=== PATIENT | male | born 1950 | race Caucasian/White ===

== ENCOUNTER → 2018-10-03 11:34 | Outpatient (CLI) | payer MEDICARE ==
[~2018-10-03 11:34] MED LIST: FLUTICASONE PRO16 GM NASAL; HYDROCODON-ACE1 EAC7 PO; HYTRIN10 MG PO; LIPITOR40 MG PO; LYRICA200 MG PO; LYRICA25 MG PO; NORVASC10 MG PO; TOPROL XL50 MG PO; VALIUM 2 MG TAB2 MG PO; ZANAFLEX4 MG; ZESTRIL40 MG PO
[2018-10-09 12:35] VITALS: BMI 43.6
== END | disposition home or self-care (01) ==
LOC: D.HCCARDIO 11:30
DX: R07.9 Chest pain, unspecified (principal); I25.10 Atherosclerotic heart disease of native coronary artery without angina pectoris; R06.00 Dyspnea, unspecified

== ENCOUNTER 2018-10-09 11:51 | Outpatient (CLI) | payer MEDICARE ==
[~2018-10-09] VITALS: Ht 185.4 cm; Wt 150.0 kg
--- NOTE | ~2018-10-09 | HEMODYNAMI ---
PATIENT:EMELY AL MEDICAL RECORD: [id number] : 50 LOCATION:D.CAT ADMISSION DATE: 10/09/18 Generatedon:10/09/201816:23 Patient name: EMELY AL Patient #: [id number] SSN: : 1950 Date of study: 10/09/2018 Page: Of Hemodynamic Procedure Report Patient Data Patient Demographics Procedure consent was obtained First Name: EMELY Gender: Male Last Name: MIKAELA : 1950 Patient #: [id number] Age: 68 year(s) Race: Unknown Additional ID: [id number] Contact details Address: [place] [address] State: [place] City: [place] Zip code: [address] Past Medical History Allergies Allergen Reaction Date Comments Reported Other allergy 10/09/2018 PCN, MOLD Admission Admission Data Admission Date: 10/09/2018 Admission Time: 11:51 Admit Source: Other Procedure Procedure Types Cath Procedure Diagnostic Procedure LHC LHC w/Coronaries Procedure Description Procedure Date Procedure Date: 10/09/2018 Procedure Start Time: 16:08 Procedure End Time: 16:19 Procedure Staff Name Function Otf Sanchez MD Performing Physician Nadia Tijerina RT Monitor Janice Mcgregor RN Nurse Johnny Almonte RT Scrub Procedure Data Cath Procedure Fluoroscopy Diagnostic fluoroscopy Total fluoroscopy Time: 1.7 time: 1.7 min min Diagnostic fluoroscopy Total fluoroscopy dose: dose: 1079 mGy 1079 mGy Contrast Material Contrast Material Type Amount (ml) Isovue 300 71 Entry Location Entry Primary Successful Side Size Upsize Upsize Entry Closure Gifford ccessful Closure Location (Fr) 1 (Fr) 2 (Fr) Remarks Device Remarks Radial Right 6 Fr Mechanical artery Short Compression Estimated blood loss: 5 ml Diagnostic catheters Device Type Used For End Catheter Placement DIAGNOSTIC Myels 110cm 5Fr catheter ([id number]) Procedure Complications No complications Procedure Medications Medication Administration Route Dosage Oxygen etCO2 Nasal cannula 2 l/min Lidocaine 2% added to field 20 Heparin Flush Bag added to field 2 bags (1000units/500ml NS) 0.9% NaCl I.V. 100 ml/hr Radial Cocktail I.A. 1 syringe (Verapomil 2mg/Nitro 400mcg/Heparin 1500units) Versed I.V. 1 mg Fentanyl I.V. 50 mcg Versed I.V. 1 mg Fentanyl I.V. 50 mcg Versed I.V. 0.5 mg Fentanyl I.V. 25 mcg Hemodynamics Rest Heart Rate: 76 (bpm) Pressure Samples Time Site Value (mmHg) Purpose Heart Use Rate(bpm) 16:10 LV 83/13,12 Snapshot 65 16:10 LV 141/16,23 Snapshot 66 16:11 AO 123/72(94) Pullback 61 16:11 LV 129/3,12 Pullback 61 Gradients Valve Time Site 1 Site 2 Mean SEP/DFP Peak To Heart Use (mmHg) (sec/min) Peak Rate (mmHg) (bpm) Aortic 16:11 LV AO 11 6 6 61 129/3,12 123/72(94) Calculations Valve P-P Mean Valve Index Valve Source Name Gradient Area Flow (cm2) Aortic 6 11 6 11 Snapshots Pre Cath Intra NCS Post Cath Vital Signs Time Heart Resp SPO2 etCO2 NIBP (mmHg) Rhythm Pain Sedation Rate (ipm) (%) (mmHg) Status Level (bpm) 15:57:18 53 14 98 0 158/89(129) NSR 0 (11) 10(A) , No pain 16:02:09 51 14 98 28.6 163/95(128) NSR 0 (11) 10(A) , No pain 16:06:23 60 13 99 35.4 147/127(135) NSR 0 (11) 10(A) , No pain 16:10:33 67 14 97 0 160/91(130) NSR 0 (11) 9(A) , No pain 16:14:47 62 12 96 19.6 158/92(116) NSR 0 (11) 9(A) , No pain 16:19:01 56 15 98 7.5 160/85(117) NSR 0 (11) 10(A) , No pain Medications Time Medication Route Dose Verified Delivered Reason Notes Effectiveness by by 16:01:57 Oxygen etCO2 2 l/min Otf Janice used for Nasal Daniel Mcgregor diagnostics tech cannula 16:02:07 Lidocaine 2% added 20ml Otf Otf for local to vial Daniel Sanchez MD anesthetic field 16:02:13 Heparin Flush added 2 bags Otf Otf used for Bag to Daniel Sanchez MD procedure (1000units/500ml field NS) 16:02:22 0.9% NaCl I.V. 100 Otf Buffie Per ml/hr Daniel Mcgregor RN physician 16:04:11 Versed I.V. 1 mg Otf Buffie for sedation Daniel Mcgregor RN 16:04:15 Fentanyl I.V. 50 mcg Otf Buffie for sedation Daniel Mcgregor RN 16:09:52 Radial Cocktail I.A. 1 Otf Otf for (Verapomil syringe Daniel Sanchez MD vasodilation 2mg/Nitro 400mcg/Heparin 1500units) 16:10:01 Versed I.V. 1 mg Otf Buffie for sedation Daniel Mcgregor RN 16:10:06 Fentanyl I.V. 50 mcg Otf Buffie for sedation Daniel Mcgregor RN 16:14:19 Versed I.V. 0.5 mg Otf Buffie for sedation Daniel Mcgregor RN 16:14:23 Fentanyl I.V. 25 mcg Otf Buffie for sedation Daniel Mcgregor RN Procedure Log Time Note 15:47:02 Admit Source: Other 15:47:25 Diagnostic Cath status Elective 15:47:31 Janice Mcgregor RN sent for patient. Start room use. 15:47:52 Time tracking: Regular hours (M-F 7:00 - 5:00) 15:47:56 Plan of Care:Hemodynamics will remain stable., Cardiac rhythm will remain stable., Comfort level will be maintained., Respiratory function will remain adequate., Patient/ family verbilizes understanding of procedure., Procedure tolerated without complication., Recovers from procedure without complications.. 15:55:55 Patient received from Pre/Post Procedure Room to CCL 1 Alert and oriented. Tansferred to table in Supine position. 15:55:57 Warm blankets applied, and vick hugger turned on for patient comfort. 15:55:57 Correct patient and procedure confirmed by team. 15:55:58 Signed procedure consent form obtained from patient. 15:56:00 ECG and BP/O2 sat monitors applied to patient. 15:56:01 Vital chart was started 15:56:02 Baseline sample Acquired. 15:56:05 Rhythm: sinus rhythm 15:56:06 Full Disclosure recording started 15:56:56 Baseline sample Acquired. 15:56:59 Baseline sample Acquired. 16:01:57 Oxygen 2 l/min etCO2 Nasal cannula was administered by Janice Mcgregor RN; used for procedure; 16:02:07 Lidocaine 2% 20ml vial added to field was administered by Otf Sanchez MD; for local anesthetic; 16:02:13 Heparin Flush Bag (1000units/500ml NS) 2 bags added to field was administered by Otf Sanchez MD; used for procedure; 16:02:18 Baseline sample Acquired. 16:02:22 0.9% NaCl 100 ml/hr I.V. was administered by Janice Mcgregor RN; Per physician; 16:02:35 H&P Date Dictated: 09/27/2018 Within 30 days and on chart., H&P Addendum completed by physician on day of procedure. (MUST COMPLETE FOR ALL OUTPATIENTS). 16:02:37 Family in patients room. 16:02:39 Patient NPO since Midnight. 16:02:48 Patient allergic to Other allergyPCN, MOLD 16:02:51 Patient diabetic? No. 16:02:53 Is patient on blood thinner?No 16:02:55 Previous problem with sedation/anesthesia? No ? 16:02:57 Snore? Yes 16:02:58 Sleep apnea? No 16:02:59 Deviated septum? No 16:03:00 Opens mouth fully? Yes 16:03:01 Sticks out tongue? Yes 16:03:03 Airway obstruction? No ? 16:03:06 Dentures? Yes IN TIGHT 16:03:10 Modified Dm's test Ulnar < 7 seconds 16:03:12 Patient pain scale 0/10 ?. 16:03:16 IV patent on arrival in left hand with 0.9% NaCl at [facility]. 16:03:19 Lab results completed and on chart. 16:03:23 Right Radial & Right Groin area was prepped with chlora-prep and draped in sterile fashion 16:03:23 Alarms reviewed by R. N. 16:03:24 Sharps counted by scrub and verified by R.N. 16:03:26 Use device set Radial Dx or PCI 16:03:27 ACIST Syringe ([id number]) opened to sterile field. 16:03:28 Bag Decanter (2001S) opened to sterile field. 16:03:29 ACIST Hand Control (15546) opened to sterile field. 16:03:29 ACIST Manifold (70877) opened to sterile field. 16:03:30 Tegaderm 4 x 4 (1626W) opened to sterile field. 16:03:32 Medline Cath Pack ([id number]) opened to sterile field. 16:03:32 DIAGNOSTIC WIRE .035 260cm J wire (636566) opened to sterile field. 16:03:32 MBrace Wrist Support ([id number]) opened to sterile field. 16:03:33 SHEATH 6FR Slender (99-5742) opened to sterile field. 16:03:35 NEEDLE Cook 21G 4cm Radial ([id number]) opened to sterile field. 16:03:40 --------ALL STOP TIME OUT------ 16:03:40 Final Timeout: patient, procedure, and site verified with staff and physician. All members of the team are in agreement. 16:03:42 Right Radial & Right Groin site verified by team. 16:03:44 Physical assessment completed. ASA score P 2 - A patient with mild systemic disease as per Otf Sanchez MD. 16:03:48 Sedation plan: IV Moderate Sedation Medication:Versed, Fentanyl 16:04:11 Versed 1 mg I.V. was administered by Janice Mcgregor RN; for sedation; 16:04:15 Fentanyl 50 mcg I.V. was administered by Janice Mcgregor RN; for sedation; 16:07:48 Zero performed for pressure channel P1 16:07:51 Procedure started. 16:08:24 Zero performed for pressure channel P1 16:08:37 Zero performed for pressure channel P1 16:08:46 Local anesthetic to right radial artery with Lidocaine 2% by Otf Sanchez MD.INITIAL ACCESS ONLY 16:09:17 A 6 Fr Short sheath was inserted into the Right Radial artery 16:09:31 A DIAGNOSTIC Myles 110cm 5Fr catheter ([id number]) was advanced over the wire and used for . 16:09:52 Radial Cocktail (Verapomil 2mg/Nitro 400mcg/Heparin 1500units) 1 syringe I.A. was administered by Otf Sanchez MD; for vasodilation; 16:10:01 Versed 1 mg I.V. was administered by Janice Mcgregor RN; for sedation; 16:10:06 Fentanyl 50 mcg I.V. was administered by Janice Mcgregor RN; for sedation; 16:10:07 LV gram done using VENTURA 16:10:11 Injector settings: Ml/sec: 5, Volume: 15, 16:10:50 LV hemodynamics recorded. 16:10:59 EF : 50 % 16:13:32 LCA angiography performed. 16:14:13 RCA angiography performed. 16:14:19 Versed 0.5 mg I.V. was administered by Janice Mcgregor RN; for sedation; 16:14:23 Fentanyl 25 mcg I.V. was administered by Janice Mcgregor RN; for sedation; 16:16:30 Catheter exchanged over wire. 16:16:36 TR BAND Large ([id number]) opened to sterile field. 16:16:59 Procedure ended.(Physican Out) 16:17:13 Sheath removed intact; hemostasis achieved with Mechanical Compression to the Right Radial artery. 16:17:33 Fluoroscopy time 01.70 minutes. 16:17:38 Fluoroscopy dose: 1079 mGy 16:17:38 Flurop Dose total: 1079 16:17:42 Contrast amount:Isovue 300 71ml. 16:17:43 Sharps counted by scrub and verified by R.N. 16:17:46 TR band inflated with 11cc of air. 16:17:59 Post-procedure physical assessment completed. ASA score P 2 - A patient with mild systemic disease as per Otf Sanchez MD. 16:18:05 Post procedure rhythm: sinus bradycardia 16:18:08 Estimated blood loss: 5 ml 16:18:09 Post procedure instruction explained to patient.Patient verbalizes understanding. 16:18:10 Patient needs reinforcement of post procedure teaching. 16:19:34 Procedure and supply charges have been captured, reviewed, submitted and are correct. 16:19:37 Procedure Complication : No complications 16:19:38 Vital chart was stopped 16:19:39 See physician's report for complete and final results. 16:19:41 Report given to Pre/Post Procedure Room. 16:19:47 Patient transfered to Pre/Post Procedure Room with Bed. 16:19:49 Procedure ended. 16:19:49 Full Disclosure recording stopped 16:19:53 End room use (Document Last) Device Usage Item Name Manufacture Quantity Catalog Hospital Part Current Minimal Lot# / Number Charge Number Stock Stock Serial# Code ACIST Acist 1 29292 150988 114707 966914 20 Syringe Medical (15657) Systems Inc Bag Microtek 1 2001S 807250 01097 866653 5 Decanter Medical Inc. () ACIST Hand Acist 1 58645 070596 627305 502421 5 Control Medical (62499) Systems Inc ACIST Acist 1 79319 211906 080229 021105 5 Manifold Medical (99448) Systems Inc Tegaderm 4 3M 1 1626W 478089 084191 091796 5 x 4 (1626W) Medline Medline 1 [id number] 817644 71733 599517 5 Cath Pack ([id number]) DIAGNOSTIC St Jabari 1 857214 997100 845370 007360 30 WIRE .035 260cm J wire (326761) MBrace Advanced 1 140-0250-00 651729 89993 501877 5 Wrist Vascular Support Dynamics ([id number]) SHEATH 6FR Terumo 1 [id number] 087872 656404 626513 5 Slender (80-1060) NEEDLE Cook Cook Medical 1 P70383 733156 383693 105635 5 21G 4cm Radial (Q50716) DIAGNOSTIC Terumo 1 40-5023 211820 005258 512570 5 Myles 110cm 5Fr catheter (578785) TR BAND Terumo 1 [id number] 833466 493864 307958 40 Large ([id number]) Signature Audit [place] Stage Time Signature Unsigned Intra-Procedure 10/09/2018 Nadia Tijerina 4:22:56 PM RT(R) Signatures Monitor : Nadia Tijerina Signature : RT Date : Time : [place] [id number]
[2018-10-09] MEDS ORDERED: HYTRIN10 MG PO (12:17)
[2018-10-09] MEDS ORDERED: ZESTRIL40 MG PO (12:18)
[2018-10-09] MEDS ORDERED: LIPITOR40 MG PO (12:18)
[2018-10-09] MEDS ORDERED: NORVASC10 MG PO (12:18)
[2018-10-09] MEDS ORDERED: TOPROL XL50 MG PO (12:18)
[2018-10-09] MEDS ORDERED: FLUTICASONE PRO16 GM NASAL (12:19)
[2018-10-09] MEDS ORDERED: VALIUM 2 MG TAB2 MG PO (12:20)
[2018-10-09] MEDS ORDERED: HYDROCODON-ACE1 EAC7 PO (12:20)
[2018-10-09] MEDS ORDERED: LYRICA200 MG PO (12:21)
[2018-10-09] MEDS ORDERED: ZANAFLEX4 MG (12:21)
[2018-10-09] MEDS ORDERED: LYRICA25 MG PO (12:22)
[2018-10-09 12:34] LABS: BASOPHILS 0.4 % (0-2); EOSINOPHILS 2.9 % (0-7); HEMATOCRIT 48.4 % (42.0-54.0); HEMOGLOBIN 16.4 g/dL (13.5-17.5); IMMATURE GRANULOCYTES 0.4 % (0-5); LYMPHOCYTES 34.3 % (15-50); MCH 30.6 pg (26.0-34.0); MCHC 33.9 g/dL (31.0-37.0); MCV 90.3 fL (80.0-100.0); MONOCYTES 8.1 % (2-11); NEUTROPHILS 53.9 % (40-80); PLATELET COUNT 213 10x3/uL (130-400); RBC 5.36 10x6/uL (4.20-6.10); RDW 13.9 % (11.5-14.5); WBC 7.9 10x3/uL (4.8-10.8)
[2018-10-09 12:35] VITALS: BP 153/81; Ht 185.4 cm; Wt 150.0 kg
[2018-10-09 12:45] LABS: ANION GAP 12.7 mmol/L (8-16); CARBON DIOXIDE 27.1 mmol/L (21.0-32.0); CREATININE - SERUM 1.1 mg/dL (0.6-1.3); POTASSIUM - SERUM 3.8 mmol/L (3.5-5.1)
--- NOTE | 2018-10-09 16:30 | NUR ---
PT RECEIVED VIA STRECTHER FROM WHEEL SETTER FOR RECOVERY. PT AWAKE BUT DROWSY. DENIES CHEST PAIN OR NAUSEA. HR SINUS ELINOR RATE 58, BP 135/79, O2 SAT 98 ON 2L/NC. TR BAND TO R WRIST, DRESSING CDI NO BLEEDING OR SWELLING NOTED. CALL LIGHT IN REACH, AT BEDSIDE.
--- NOTE | 2018-10-09 16:45 | NUR ---
PT RESTING QUIETLY, DENIES NEEDS. TR BAND IN PLACE, NO BLEEDING OR HEMATOMA NOTED. HR 56, BP 145/80. CALL LIGHT IN REACH.
--- NOTE | 2018-10-09 17:15 | NUR ---
TR BAND IN PLACE, DRESSING REMAINS CDI NO BLEEDING OR SWELLING NOTED. PT SLEEPING QUIETLY. CALL LIGHT IN REACH
--- NOTE | 2018-10-09 17:42 | NUR ---
4 CC AIR REMOVED FROM TR BAND, SMALL AMT OF BLEEDING NOTED PLACED 2CC AIR BACK IN. PT GIVEN SANDWICH PER REQUEST. DENIES CHEST PAIN OR ANY OTHER NEEDS. CALL LIGHT IN REACH, AT BEDSIDE.
--- NOTE | 2018-10-09 18:02 | NUR ---
4 CC AIR REMOVED FROM TRB NO BLEEDING OR SWELLING NOTED. VOIDED IN URINAL. DENIES PAIN OR ADDITIONAL NEEDS.
--- NOTE | 2018-10-09 18:15 | NUR ---
DISCHARGE TEACHING COMPLETED W PT AND , VERBALIZED UNDERSTANDING. IV REMOVED W CATH INTACT, MONITORS AND O2 REMOVED. PT UP TO DRESS FOR DISCHARGE.
--- NOTE | 2018-10-09 18:30 | NUR ---
TR BAND AND REMAINING AIR REMOVED. NO BLEEDING OR SWELLING NOTED. 2X2 AND TEGADERM DRESSING APPLIED. PT DISCHARGED VIA WC TO PRIVATE VEHICLE.
== END 2018-10-09 18:30 | disposition home or self-care (01) ==
LOC: D.CATH 11:51
PROVIDERS: Internal Medicine Cardiovascular Disease
DX: I25.119 Atherosclerotic heart disease of native coronary artery with unspecified angina pectoris (principal); T82.855A Stenosis of coronary artery stent, initial encounter; Z88.0 Allergy status to penicillin; Z91.048 Other nonmedicinal substance allergy status; Z79.82 Long term (current) use of aspirin; Z79.891 Long term (current) use of opiate analgesic; Z79.899 Other long term (current) drug therapy; F17.210 Nicotine dependence, cigarettes, uncomplicated; E78.00 Pure hypercholesterolemia, unspecified; I10 Essential (primary) hypertension; E66.3 Overweight; K21.9 Gastro-esophageal reflux disease without esophagitis; Z01.812 Encounter for preprocedural laboratory examination

== ENCOUNTER → 2018-10-09 12:09 | Outpatient (CLI) | payer MEDICARE ==
[2018-10-09 12:35] VITALS: BMI 43.6
== END | disposition home or self-care (01) ==
LOC: D.ECHO 12:09
DX: R06.02 Shortness of breath (principal)

== ENCOUNTER 2018-10-17 11:06 | Outpatient (CLI) | payer MEDICARE ==
[~2018-10-17] VITALS: Ht 185.4 cm; Wt 154.5 kg
--- NOTE | ~2018-10-17 | HEMODYNAMI ---
PATIENT:EMELY WILLIAMSON MEDICAL RECORD: [id number] : 50 LOCATION:[facility] ADMISSION DATE: 10/17/18 Generatedon:10/17/201813:45 Patient name: EMELY WILLIAMSON Patient #: [id number] SSN: : 1950 Date of study: 10/17/2018 Page: Of Hemodynamic Procedure Report Patient Data Patient Demographics Procedure consent was obtained First Name: EMELY Gender: Male Last Name: CLAY : 1950 [facility] Initial: MARCELLA Age: 68 year(s) Patient #: [id number] Race: Unknown Additional ID: [id number] Contact details Address: [address] [place] [address] State: [place] City: [place] Zip code: [address] Past Medical History Allergies Allergen Reaction Date Comments Reported Other allergy 10/09/2018 PCN, MOLD Other allergy 10/17/2018 PCN, MOLD Admission Admission Data Admission Date: 10/17/2018 Admission Time: 11:06 Admit Source: Other Height (in.): .39 BSA: 0.06 (m2) Height (cm.): 1 BMI: 2572523 (kg/m2) Weight (lbs.): 340 Weight (kg.): 154.22 Lab Results Lab Result Date: 10/17/2018 Lab Result Time: 0:08 Biochemistry Name Units Result Min Max BUN mg/dl 14 --(--*-)-- 7 18 Creatinine mg/dl 1.1 --(--*-)-- 0.6 1.3 CBC Name Units Result Min Max Hematocrit % 45.6 --(-*--)-- 42 54 Hemoglobin g/dl 15.4 --(-*--)-- 13.5 17.5 Procedure Procedure Types Cath Procedure PCI Procedure Coronary Stent Coronary Stent Initial x2 Procedure Description Procedure Date Procedure Date: 10/17/2018 Procedure Start Time: 13:15 Procedure End Time: 13:43 Procedure Staff Name Function Herberth Bowers RT Monitor Otf Sanchez MD Performing Physician Cosme Fischer RT Scrub Tangela Basurto RN Nurse [facility] RT Monitor Procedure Data Cath Procedure Fluoroscopy Diagnostic fluoroscopy Total fluoroscopy Time: 5.5 time: 5.5 min min Diagnostic fluoroscopy Total fluoroscopy dose: dose: 1894 mGy 1894 mGy Contrast Material Contrast Material Type Amount (ml) Isovue 300 111 Entry Location Entry Primary Successful Side Size Upsize Upsize Entry Closure Gifford ccessful Closure Location (Fr) 1 (Fr) 2 (Fr) Remarks Device Remarks Radial Right 6 Fr Mechanical artery Short Compression Estimated blood loss: 5 ml Procedure Complications No complications Procedure Medications Medication Administration Route Dosage 0.9% NaCl I.V. 100 ml/hr Oxygen etCO2 Nasal cannula 2 l/min Lidocaine 2% added to field 20 Heparin Flush Bag added to field 2 bags (1000units/500ml NS) Radial Cocktail added to field 1 syringe (Verapomil 2mg/Nitro 400mcg/Heparin 1500units) Versed I.V. 2 mg Fentanyl I.V. 50 mcg Heparin Bolus 67156 units Versed I.V. 2 mg Fentanyl I.V. 50 mcg Fentanyl I.V. 50 mcg Versed I.V. 2 mg Plavix P.O. 600 mg Hemodynamics Rest BSA: 0.06 (m2) HGB: 15.4 (g/dl) O2 Consumption: Estimated: 6.77 (ml/min) O2 Cons umption indexed: Estimated:112.83 (ml/min/m) Heart Rate: 61 (bpm) Snapshots Pre Cath Intra NCS Post Cath Vital Signs Time Heart Resp SPO2 etCO2 NIBP (mmHg) Rhythm Pain Sedation Rate (ipm) (%) (mmHg) Status Level (bpm) 13:05:25 60 14 99 14.9 171/98(158) NSR 0 (11) 10(A) , No pain 13:09:53 62 10 98 15.6 174/97(125) NSR 0 (11) 10(A) , No pain 13:14:26 63 11 98 16.8 170/86(123) NSR 0 (11) 10(A) , No pain 13:18:50 67 13 98 20.6 144/82(114) NSR 0 (11) 10(A) , No pain 13:24:07 67 14 96 32 149/77(111) NSR 0 (11) 9(A) , No pain 13:28:29 67 12 96 29 157/87(123) NSR 0 (11) 9(A) , No pain 13:32:47 63 13 97 29.8 155/90(120) NSR 0 (11) 9(A) , No pain 13:37:10 69 14 98 34.2 145/94(117) NSR 0 (11) 9(A) , No pain 13:41:28 67 13 99 34.2 145/85(118) NSR 0 (11) 10(A) , No pain Medications Time Medication Route Dose Verified Delivered Reason Not es Effectiveness by by 13:02:05 0.9% NaCl I.V. 100 Otf Tangela used for ml/hr Daniel Basurto human resource internship 13:02:13 Oxygen etCO2 2 l/min Otf Tangela used for Nasal Daniel Basurto procedure cannula RN 13:02:31 Lidocaine 2% added 20ml Otf Otf for local to vial Daniel Sanchez MD anesthetic field 13:02:36 Heparin Flush added 2 bags Otf Otf used for Bag to Daniel Sanchez MD procedure (1000units/500ml field NS) 13:02:44 Radial Cocktail added 1 Otf Otf used for (Verapomil to syringe aDniel Sanchez MD procedure 2mg/Nitro field 400mcg/Hepari 13:13:50 Versed I.V. 2 mg Otf Tangela for Daniel Basurto anticoagulation RN 13:14:10 Fentanyl I.V. 50 mcg Otf Tangela for sedation Daniel Basurto RN 13:19:29 Heparin Bolus 73495 Otf Tangela for cony ified units Daniel Basurto anticoagulation with Dr. FRANCISCO Sanchez 13:19:48 Fentanyl I.V. 50 mcg Otf Tangela for sedation Daniel Basurto RN 13:19:48 Versed I.V. 2 mg Otf Tangela for Daniel Basurto anticoagulation RN 13:29:16 Fentanyl I.V. 50 mcg Otf Tangela for sedation Daniel Basurto RN 13:29:43 Versed I.V. 2 mg Otf Tangela for Daniel Basurto anticoagulation RN 13:42:19 Plavix P.O. 600 mg Otf Tangela for Sanchez MD Sb antiplatelet RN therapy Procedure Log Time Note 12:34:40 Informed consent obtained and on chart 12:34:44 Admit Source: Other 12:35:27 Diagnostic Cath status Elective 12:35:28 Time tracking: Regular hours (M-F 7:00 - 5:00) 12:35:32 Plan of Care:Hemodynamics will remain stable., Cardiac rhythm will remain stable., Comfort level will be maintained., Respiratory function will remain adequate., Patient/ family verbilizes understanding of procedure., Procedure tolerated without complication., Recovers from procedure without complications.. 12:35:59 H&P Date Dictated: 10/17/2018 Within 30 days and on chart., H&P Addendum completed by physician on day of procedure. (MUST COMPLETE FOR ALL OUTPATIENTS). 12:36:18 Patient allergic to Other allergyPCN, MOLD 12:39:06 Lab Result : Hemoglobin 15.4 g/dl 12:39:06 Lab Result : Hematocrit 45.6 % 12:39:06 Lab Result : BUN 14 mg/dl 12:39:06 Lab Result : Creatinine 1.1 mg/dl 12:39:08 Lab results completed and on chart. 12:39:14 Herberth Bowers RT(R) (CV) sent for patient. Start room use. 12:52:33 Patient received from Pre/Post Procedure Room to CCL 1 Alert and oriented. Tansferred to table in Supine position. 12:52:34 Correct patient and procedure confirmed by team. 12:52:34 Warm blankets applied, and vick hugger turned on for patient comfort. 12:52:35 ECG and BP/O2 sat monitors applied to patient. 12:52:36 Pre-procedure instructions explained to patient. 12:52:37 Pre-op teaching completed and patient verbalized understanding. 12:52:38 Family in waiting room. 12:52:39 Patient NPO since Midnight. 12:53:17 Is patient on blood thinner?No 12:53:18 Patient diabetic? No. 12:53:21 Previous problem with sedation/anesthesia? No ? 12:53:22 Sleep apnea? No 12:53:22 Snore? No 12:53:24 Opens mouth fully? Yes 12:53:24 Deviated septum? No 12:53:25 Sticks out tongue? Yes 12:53:27 Airway obstruction? No ? 12:53:30 Dentures? Yes UPPER IN TIGHT 12:53:36 Modified Dm's test Ulnar > 7 seconds. 12:53:38 Patient pain scale 0/10 ?. 12:53:42 IV patent on arrival in left forearm with 0.9% NaCl at [facility]. 13:01:40 Vital chart was started 13:02:05 0.9% NaCl 100 ml/hr I.V. was administered by Tangela Basurto RN; used for procedure; 13:02:13 Oxygen 2 l/min etCO2 Nasal cannula was administered by Tangela Basurto RN; used for procedure; 13:02:31 Lidocaine 2% 20ml vial added to field was administered by Otf Sanchez MD; for local anesthetic; 13:02:36 Heparin Flush Bag (1000units/500ml NS) 2 bags added to field was administered by Otf Sanchez MD; used for procedure; 13:02:44 Radial Cocktail (Verapomil 2mg/Nitro 400mcg/Heparin 1500units) 1 syringe added to field was administered by Otf Sanchez MD; used for procedure; 13:05:07 Use device set Radial Dx or PCI 13:05:09 ACIST Syringe (44809) opened to sterile field. 13:05:10 Medline Cath Pack ([id number]) opened to sterile field. 13:05:11 Bag Decanter (2002S) opened to sterile field. 13:05:15 ACIST Hand Control (72060) opened to sterile field. 13:05:20 ACIST Manifold (57685) opened to sterile field. 13:05:21 Tegaderm 4 x 4 (1626W) opened to sterile field. 13:05:22 MBrace Wrist Support ([id number]) opened to sterile field. 13:05:32 SHEATH 6FR Slender (21-3770) opened to sterile field. 13:06:08 EMERALD Guide Wire (088-985) opened to sterile field. 13:06:57 TUBING High Pressure Extension Tubing (Daniel) ([id number]) opened to sterile field. 13:09:37 Right Radial & Right Groin area was prepped with chlora-prep and draped in sterile fashion 13:09:38 Sharps counted by scrub and verified by R.N. 13:09:38 Alarms reviewed by R. N. 13:09:46 Full Disclosure recording started 13:09:47 Baseline sample Acquired. 13:09:51 Rhythm: sinus rhythm 13:12:08 Final Timeout: patient, procedure, and site verified with staff and physician. All members of the team are in agreement. 13:12:11 Right groin site verified by team. 13:12:15 Fire Safety Assessment: A--An alcohol-based skin anteseptic being used preoperatively., B--The operative or invasive procedure is being performed above the xiphoid process or in the oropharynx., D--An ESU, laser, or fiber-optic light is being used. 13:12:22 Physical assessment completed. ASA score P 2 - A patient with mild systemic disease as per Otf Sanchez MD. 13:12:25 Sedation plan: IV Moderate Sedation Medication:Versed, Fentanyl 13:12:29 Zero performed for pressure channel P1 13:12:42 Zero performed for pressure channel P1 13:13:50 Versed 2 mg I.V. was administered by Tangela Basurto RN; for anticoagulation; 13:14:10 Fentanyl 50 mcg I.V. was administered by Tangela Basurto RN; for sedation; 13:15:14 Procedure started. 13:15:20 Local anesthetic to right radial artery with Lidocaine 2% by Otf Sanchez MD.INITIAL ACCESS ONLY 13:16:38 A 6 Fr Short sheath was inserted into the Right Radial artery 13:17:13 Patient Height : 0.39 inches 13:17:21 Patient Weight : 340 lbs 13:18:29 BMW 300cm Efland 2 J wire ([id number]) opened to sterile field. 13:18:36 GUIDE 6FR XBLAD 4.0 catheter ([id number]) opened to sterile field. 13:19:20 6 Fr XBLAD 4.0 guide catheter was inserted over the wire 13:19:29 Heparin Bolus 50252 units was administered by Tangela Basurto RN; for anticoagulation; verified with Dr. Sanchez 13:19:48 Fentanyl 50 mcg I.V. was administered by Tangela Basurto RN; for sedation; 13:19:48 Versed 2 mg I.V. was administered by Tangela Basurto RN; for anticoagulation; 13:22:52 BMW wire advanced. 13:26:51 Place stent Inflation Number: 1 A YOUSUF OTW 3.5 x 30 stent ([id number]) was prepped and advanced across the Prox LAD. The stent was deployed at 14 GREGORIA for 0:22 (min:sec). 13:27:35 Stent catheter was removed intact over wire. 13:29:16 Fentanyl 50 mcg I.V. was administered by Tangela Basurto RN; for sedation; 13:29:43 Versed 2 mg I.V. was administered by Tangela Basurto RN; for anticoagulation; 13:29:59 Wire redirected to RAMUS. 13:37:49 Place stent Inflation Number: 1 A YOUSUF OTW 3.5 x 22 stent ([id number]) was prepped and advanced across the Ramus. The stent was deployed at 13 GREGORIA for 0:19 (min:sec). 13:39:05 Stent catheter was removed intact over wire. 13:39:06 Wire removed. 13:39:07 Guide catheter removed. 13:39:17 Sheath removed intact; hemostasis achieved with Mechanical Compression to the Right Radial artery. 13:39:34 Procedure ended.(Physican Out) 13:39:50 Fluoroscopy time 05.50 minutes. 13:39:54 Fluoroscopy dose: 1894 mGy 13:39:54 Flurop Dose total: 1894 13:39:57 Contrast amount:Isovue 300 111ml. 13:39:59 Sharps counted by scrub and verified by R.N. 13:40:01 TR band inflated with 12cc of air. 13:40:02 Insertion/operative site no bleeding no hematoma. 13:40:06 Post right radial artery:stable, clean and dry 13:40:07 Post Procedure Pulses reassessed and unchanged 13:40:10 Post-procedure physical assessment completed. ASA score P 2 - A patient with mild systemic disease as per Otf Sanchez MD. 13:40:13 Post procedure rhythm: unchanged. 13:40:16 Estimated blood loss: 5 ml 13:40:17 Post procedure instruction explained to patient.Patient verbalizes understanding. 13:40:18 Patient needs reinforcement of post procedure teaching. 13:40:23 Procedure Complication : No complications 13:40:48 ZEPHYR REGULAR TR BAND NO COST(322766) opened to sterile field. 13:42:19 Plavix 600 mg P.O. was administered by Tangela Basurto RN; for antiplatelet therapy; 13:42:56 Procedure type changed to Cath procedure, PCI procedure, Coronary Stent, Coronary Stent Initial x2 13:43:00 See physician's report for complete and final results. 13:43:35 Procedure and supply charges have been captured, reviewed, submitted and are correct. 13:43:39 Vital chart was stopped 13:43:41 Report given to ED. 13:43:45 Patient transfered to Pre/Post Procedure Room with Stretcher. 13:43:54 Full Disclosure recording stopped 13:43:54 Procedure ended. 13:43:57 End room use (Document Last) Intervention Summary Intervention Notes Time ActionType Lesion and Equipment Action# Pressure Duration Attributes Used 13:26:51 Place stent Prox LAD YOUSUF OTW 3.5 1 14 00:22 x 30 stent ([id number]) 13:37:49 Place stent Ramus YOUSUF OTW 3.5 1 13 00:19 x 22 stent ([id number]) Device Usage Item Name Manufacture Quantity Catalog Hospital Part Current Mini mal Lot# / Number Charge Number Stock Stock Serial# Code ACIST Syringe Acist 1 26195 923552 598224 592767 20 (55370) Medical Systems Inc Medline Cath Medline 1 [id number] 727868 14803 136845 5 Pack ([id number]) Bag Decanter Microtek 1 2001S 540091 75411 462172 5 (2002S) Medical Inc. ACIST Hand Acist 1 59592 547360 974697 520563 5 Control Medical (02383) Systems Inc ACIST Acist 1 91659 313506 843883 963585 5 Manifold Medical (69031) Systems Inc Tegaderm 4 x 3M 1 1626W 949155 945115 073950 5 4 (1626W) MBrace Wrist Advanced 1 140-0250-00 769817 27150 078521 5 Support Vascular (591977911) Dynamics SHEATH 6FR Terumo 1 [id number] 227783 410336 798977 5 Slender (80-1060) EMERALD Guide Cardinal 1 502-455 068827 428425 5 Wire Health (502-864) TUBING High Merit 1 [id number] 800675 05494 057592 10 Pressure Medical Extension Tubing (Sanchez) (YY0493H) BMW 300cm Prakash 1 [id number] 016610 719405 268464 5 [place]fland 2 J Vascular wire (5859035M) GUIDE 6FR Cardinal 1 [id number] 656649 895438 348447 3 XBLAD 4.0 Health catheter (38670814) YOUSUF OTW 3.5 Medtronic 1 [id number] 747182 9375834 955440 5 [id number] x 30 stent ([id number]) YOUSUF OTW 3.5 Medtronic 1 [id number] 928206 5034201 356377 5 [id number] x 22 stent ([id number]) ZEPHYR Cardinal 1 887640 763028 409145 5 REGULAR TR Health BAND NO COST(578013) Signature Audit [place] Stage Time Signature Unsigned Intra-Procedure 10/17/2018 [facility] 1:45:35 PM Counts RT(R) Signatures Monitor : Herberth Bowers RT Signature : Date : Time : Monitor : [facility] Signature : Counts RT Date : Time : [id number] [place] [address]
[2018-10-17] MEDS ORDERED: LYRICA200 MG PO (11:55)
[2018-10-17] MEDS ORDERED: HYDROCODON-ACE1 EA10 PO (11:56)
[2018-10-17] MEDS ORDERED: ASPIRIN81 MG PO (11:58)
[2018-10-17] MEDS ORDERED: CATAPRES0.1 MG PO (11:59)
[2018-10-17] MEDS ORDERED: RANITIDINE HCL150 M1 PO (12:00)
[2018-10-17] MEDS ORDERED: OMEPRAZOLE20 M1 PO (12:00)
[2018-10-17] MEDS ORDERED: NIASPAN500 MG PO (12:01)
[2018-10-17] MEDS ORDERED: OS-CAL500 MG PO (12:02)
[2018-10-17] MEDS ORDERED: POTASSIUM99 M1 PO (12:02)
[2018-10-17] MEDS ORDERED: VITAMIN D31000 UNI2 PO (12:03)
[2018-10-17] MEDS ORDERED: VITAMIN B-1250 MCG PO (12:03)
[2018-10-17 12:10] VITALS: BP 147/80; Ht 185.4 cm; Wt 154.5 kg
[2018-10-17 12:11] LABS: BASOPHILS 0.6 % (0-2); EOSINOPHILS 2.4 % (0-7); HEMATOCRIT 45.6 % (42.0-54.0); HEMOGLOBIN 15.4 g/dL (13.5-17.5); IMMATURE GRANULOCYTES 0.4 % (0-5); LYMPHOCYTES 30.2 % (15-50); MCH 30.4 pg (26.0-34.0); MCHC 33.8 g/dL (31.0-37.0); MCV 89.9 fL (80.0-100.0); MEAN PLATELET VOLUME 9.9 fL (7.4-10.4); MONOCYTES 8.8 % (2-11); NEUTROPHILS 57.6 % (40-80); PLATELET COUNT 217 10x3/uL (130-400); RBC 5.07 10x6/uL (4.20-6.10); RDW 14.3 % (11.5-14.5)
[2018-10-17 12:19] LABS: ANION GAP 14.9 mmol/L (8-16); CALCIUM 8.7 mg/dL (8.5-10.1); CREATININE - SERUM 1.1 mg/dL (0.6-1.3); POTASSIUM - SERUM 3.9 mmol/L (3.5-5.1)
[2018-10-17] MEDS ORDERED: BAYER CHEWABLE81 MG PO (13:59)
[2018-10-17] MEDS ORDERED: PLAVIX75 MG PO (13:59)
--- NOTE | 2018-10-17 14:06 | NUR ---
RECIEVED TO ROOM VIA STRETCHER FROM FORECAST ANALYST WITH TR BAND TO R/WRIST CDI NO BLEEDING OR HEMATOMA NOTED. PATIENT CONNECTED TO MONITOR FOR OBSERVATION WITH SB RATE OF 58 CHEST PAIN IS DENIED
--- NOTE | 2018-10-17 14:16 | NUR ---
ZYPHER BAND TO R/WRIST IS CDI WITH NO BLEEDING OR HEMATOMA NOTED. PATIENT DENIED CHEST PAIN CALL LIGHT IS IN REACH WITH FAMILY AT BEDSDIE
--- NOTE | 2018-10-17 14:35 | NUR ---
SANDWICH AND SODA TO BEDSIDE WITH NAUSEA DENIED. VSS
--- NOTE | 2018-10-17 14:47 | NUR ---
REPOSITIONED HOB UP 30 WITH ZYPHER BAND TO R/WRIST CDI NO BLEEDING NOTED. PATIENT DENIED NAUSEA OR CHEST PAIN VSS
--- NOTE | 2018-10-17 15:04 | NUR ---
PATIENT VOICED NO PAIN OR NEEDS CALL LIGHT IN REACH WITH FAMILY AT BEDSIDE
--- NOTE | 2018-10-17 15:37 | NUR ---
ZYPHER BAND TO R/WRIST IS CDI NO BLEEDING OR HEMATOMA. VSS AND CHEST PAIN IS DENIED
--- NOTE | 2018-10-17 16:03 | NUR ---
ZYPHER BAND REMAINS CDI WITH NO BLEEDING NOTED. PATIENT DENIED CHEST PAIN. CALL LIGHT IS IN REACH
--- NOTE | 2018-10-17 16:22 | NUR ---
PATIENT RESTING QUIETLY WITH VSS NO DISTRESS NOTED. ZYPHER BAND IS CDI
--- NOTE | 2018-10-17 16:46 | NUR ---
4 CC AIR REMOVED FROM ZYPER BAND WITH NO BLEEDING NOTED.
--- NOTE | 2018-10-17 17:15 | NUR ---
4 CC AIR REMOVED FROM ZYPHER BAND WITH NO BLEEDING NOTED. VERBAL AND WRITTEN DISCHARGE GONE OVER WITH PATIENT AND .
--- NOTE | 2018-10-17 17:28 | NUR ---
4 CC AIR REMOVED FROM ZYPHER BAND WITH NO BLEEDING NOTED. PIV REMOVED WITH DRESSING APPLIED. PATIENT DENIED CHEST PAIN. UP TO GET DRESSED FOR DISCHARGE HOME NO DISTRESS NOTED.
--- NOTE | 2018-10-17 17:40 | NUR ---
ZYPHER BAND REMOVED WITH DRESSING APPLIED. NO BLEEDING OR HEMATOMA PATIENT DENIED CHEST PAIN.LEFT VIA WC TO PARKING FOR TRANSPORT HOME WITH
== END 2018-10-17 17:42 | disposition home or self-care (01) ==
LOC: D.CATH 11:06
PROVIDERS: Internal Medicine Cardiovascular Disease
DX: I25.110 Atherosclerotic heart disease of native coronary artery with unstable angina pectoris (principal)
CPT/HCPCS: C9600 ×2

== ENCOUNTER 2019-09-19 13:36 | Emergency (ER) | payer MEDICARE ==
[~2019-09-19] VITALS: Ht 185.4 cm; Wt 153.6 kg
[~2019-09-19 13:36] MED LIST changes: +ASPIRIN81 MG PO; +BAYER CHEWABLE81 MG PO; +CATAPRES0.1 MG PO; +HYDROCODON-ACE1 EA10 PO; +NIASPAN500 MG PO; +OMEPRAZOLE20 M1 PO; +OS-CAL500 MG PO; +PLAVIX75 MG PO; +POTASSIUM99 M1 PO; +RANITIDINE HCL150 M1 PO; +VITAMIN B-1250 MCG PO; +VITAMIN D31000 UNI2 PO
[2019-09-19 13:43] VITALS: Ht 185.4 cm; Wt 153.6 kg
[2019-09-19] MEDS ORDERED: RANEXA500 MG PO (13:47)
[2019-09-19 17:08] LABS: APPEARANCE CLEAR (CLEAR); BILIRUBIN NEGATIVE (NEGATIVE); COLOR YELLOW (YELLOW); GLUCOSE NEGATIVE (NEGATIVE); KETONE NEGATIVE (NEGATIVE); NITRITE NEGATIVE (NEGATIVE); PROTEIN 1+ mg/dL (NEGATIVE); SPECIFIC GRAVITY 1.015 (1.005-1.020); UROBILINOGEN NORMAL (NORMAL)
[2019-09-19 18:52] LABS: ALKALINE PHOSPHATASE 75 U/L (46-116); ALT (SGPT) 32 U/L (10-68); BILIRUBIN - TOTAL 0.55 mg/dL (0.2-1.3); CARBON DIOXIDE 25.9 mmol/L (21.0-32.0); CHLORIDE - SERUM 104 mmol/L (98-107); POTASSIUM - SERUM 5.2 mmol/L (3.5-5.1); PROTEIN - SERUM 7.4 g/dL (6.4-8.2); SODIUM 141 mmol/L (136-145)
[2019-09-19 18:58] LABS: APTT 30.8 SECONDS (22.8-39.4); INR 1.03 (0.85-1.17); PROTIME 13.5 SECONDS (11.6-15.0)
[2019-09-19 19:29] LABS: BASOPHILS 0.6 % (0-2); EOSINOPHILS 2.6 % (0-7); HEMATOCRIT 47.4 % (42.0-54.0); HEMOGLOBIN 16.1 g/dL (13.5-17.5); IMMATURE GRANULOCYTES 1.5 % (0-5); MCH 31.3 pg (26.0-34.0); MCV 92.2 fL (80.0-100.0); MEAN PLATELET VOLUME 9.7 fL (7.4-10.4); MONOCYTES 7.3 % (2-11); PLATELET COUNT 239 10x3/uL (130-400); RBC 5.14 10x6/uL (4.20-6.10); RDW 13.5 % (11.5-14.5); WBC 6.8 10x3/uL (4.8-10.8)
[2019-09-19 19:43] LABS: ALBUMIN 3.8 g/dL (3.4-5.0); CALC OSMOLALITY 282 mosm/kg (275-300); CALCIUM 8.6 mg/dL (8.5-10.1); CREATININE - SERUM 0.8 mg/dL (0.6-1.3); GLUCOSE 115 mg/dL (74-106); UREA NITROGEN 15 mg/dL (7-18); eGFR NON AFRICAN AMERICAN > 90 mL/min (90-120)
[2019-09-19 22:57] VITALS: BP 143/74
== END 2019-09-19 22:57 | disposition home or self-care (01) ==
LOC: D.ER 13:36
PROVIDERS: Family Medicine
DX: M54.5 Low back pain (principal); M47.816 Spondylosis without myelopathy or radiculopathy, lumbar region; I77.819 Aortic ectasia, unspecified site

== ENCOUNTER 2019-09-24 14:52 | Inpatient (IN) | payer MEDICARE ==
[~2019-09-24] VITALS: Ht 185.4 cm; Wt 154.5 kg
[~2019-09-24 14:52] MED LIST changes: +RANEXA500 MG PO; -ZANAFLEX4 MG; +ZANAFLEX4 MG PO
[2019-09-24 16:45] VITALS: BP 126/68
[2019-09-24 17:11] VITALS: BP 142/66
[2019-09-24 18:02] VITALS: BP 131/75
--- NOTE | 2019-09-24 18:32 | NUR ---
DEPART ASSESSMENT PLACED AT 1832 WAS DONE IN ERROR. ENTERED ON THE WRONG PATIENT
--- NOTE | 2019-09-24 19:08 | NUR ---
BEDSIDE REPORT TO CURT SINGH FOR SHIFT CHANGE
--- NOTE | 2019-09-24 20:32 | NUR ---
PT LEFT FLOOR AT THIS TIME. REPORT GIVEN TO RIGO MARIE.
--- NOTE | 2019-09-24 20:45 | NUR ---
RECIEVED TO FLOOR. A&O X 4. VS STABLE. REPORTS SEVERE PAIN IN BACK. SIDE-LYING IN BED. ABRAHAN IN USE, NO FURTHER NEEDS AT THIS TIME, WILL CONTINUE TO MONITOR.
[2019-09-24 23:50] VITALS: BMI 44.9
[2019-09-25 00:30] VITALS: BP 131/78
--- NOTE | 2019-09-25 05:10 | NUR ---
I have reviewed this patient and I concur with the Shift Assessment completed by the Licensed Practical Nurse today this shift.
[2019-09-25 05:30] VITALS: BP 133/77
[2019-09-25 05:56] LABS: BASOPHILS 0.1 % (0-2); EOSINOPHILS 0 % (0-7); HEMATOCRIT 47.8 % (42.0-54.0); HEMOGLOBIN 16.3 g/dL (13.5-17.5); IMMATURE GRANULOCYTES 0.3 % (0-5); LYMPHOCYTES 13.9 % (15-50); MCH 31.7 pg (26.0-34.0); MCHC 34.1 g/dL (31.0-37.0); MCV 92.8 fL (80.0-100.0); MEAN PLATELET VOLUME 9.8 fL (7.4-10.4); NEUTROPHILS 82.7 % (40-80); PLATELET COUNT 258 10x3/uL (130-400); RBC 5.15 10x6/uL (4.20-6.10); WBC 7.3 10x3/uL (4.8-10.8)
[2019-09-25 06:09] LABS: APTT 34.8 SECONDS (22.8-39.4); INR 1.1 (0.85-1.17); PROTIME 14.1 SECONDS (11.6-15.0)
[2019-09-25 07:32] LABS: ALBUMIN 3.4 g/dL (3.4-5.0); ANION GAP 12.7 mmol/L (8-16); BILIRUBIN - TOTAL 0.4 mg/dL (0.2-1.3); CALCIUM 8.6 mg/dL (8.5-10.1); CARBON DIOXIDE 27.4 mmol/L (21.0-32.0); CREATININE - SERUM 1.1 mg/dL (0.6-1.3); MAGNESIUM - SERUM 2.2 mg/dL (1.8-2.4); PHOSPHOROUS 3.6 mg/dL (2.5-4.9); POTASSIUM - SERUM 5.1 mmol/L (3.5-5.1); PROTEIN - SERUM 6.8 g/dL (6.4-8.2)
[2019-09-25 08:27] LABS: APPEARANCE CLEAR (CLEAR); BILIRUBIN NEGATIVE (NEGATIVE); COLOR YELLOW (YELLOW); GLUCOSE NEGATIVE (NEGATIVE); KETONE NEGATIVE (NEGATIVE); NITRITE NEGATIVE (NEGATIVE); PROTEIN 1+ mg/dL (NEGATIVE); UROBILINOGEN NORMAL (NORMAL)
[2019-09-25 08:28] LABS: BACTERIA FEW /hpf (NEGATIVE); EPITHELIAL CELLS RARE /hpf (0-5); RED CELLS - URINE OCC /hpf (0-5); WHITE CELLS - URINE NSEEN /hpf (NEGATIVE)
[2019-09-25 09:38] VITALS: BP 163/95
--- NOTE | 2019-09-25 13:14 | NUR ---
0800 RESTING IN BED, NO DISTRESS NOTED, TRACK REPAIRER IN PLACE, IV INFUSING PER R HAND, CONT TO MONITOR PAIN AND SEDATION
[2019-09-25 13:19] VITALS: BP 132/81
--- NOTE | 2019-09-25 14:01 | NUR ---
HERE, PT REFUSING MEDS THIS AM SINCE PILLS WERE IN A DIFFERENT DOSE THAN HE WAS USED TO, TEENAGE PROGRAM DIRECTOR INFUSING, NO DISTRESS NOTED
[2019-09-25 15:40] VITALS: Ht 185.4 cm; Wt 154.5 kg
[2019-09-25 17:15] VITALS: BP 124/68
[2019-09-25 20:00] VITALS: BP 117/64
[2019-09-26] VITALS: BP 105/56
--- NOTE | 2019-09-26 03:22 | NUR ---
I have reviewed this patient and I concur with the Shift Assessment completed by the Licensed Practical Nurse today this shift.
[2019-09-26 04:00] VITALS: BP 136/70
--- NOTE | 2019-09-26 04:25 | NUR ---
I have reviewed this patient and I concur with the Shift Assessment completed by the Licensed Practical Nurse today this shift.
[2019-09-26 05:04] LABS: BASOPHILS 0.1 % (0-2); EOSINOPHILS 0.5 % (0-7); HEMATOCRIT 47.3 % (42.0-54.0); HEMOGLOBIN 15.5 g/dL (13.5-17.5); IMMATURE GRANULOCYTES 0.8 % (0-5); LYMPHOCYTES 22.4 % (15-50); MCH 31.1 pg (26.0-34.0); MCHC 32.8 g/dL (31.0-37.0); MEAN PLATELET VOLUME 9.9 fL (7.4-10.4); MONOCYTES 10.3 % (2-11); NEUTROPHILS 65.9 % (40-80); PLATELET COUNT 268 10x3/uL (130-400); RBC 4.98 10x6/uL (4.20-6.10); RDW 13.7 % (11.5-14.5)
[2019-09-26 05:11] LABS: WBC 10.1 10x3/uL (4.8-10.8)
[2019-09-26 05:21] LABS: ANION GAP 7.4 mmol/L (8-16); CALCIUM 8.1 mg/dL (8.5-10.1); CARBON DIOXIDE 33.7 mmol/L (21.0-32.0); CREATININE - SERUM 1.2 mg/dL (0.6-1.3); MAGNESIUM - SERUM 2.3 mg/dL (1.8-2.4); PHOSPHOROUS 3.7 mg/dL (2.5-4.9)
[2019-09-26 05:22] LABS: POTASSIUM - SERUM 4.1 mmol/L (3.5-5.1)
--- NOTE | 2019-09-26 08:02 | NUR ---
AWAKE AND ALERT. ORIENTED X3. NO C/O AT THIS TIME. LUNGS ARE DIMINISHED THROUGHOUT LUNG ORR, NON PRODUCTIVE COUGH NOTED. SKIN IS INTACT WITHOUT REDNESS. IV TO RIGHT HAND IS PATETN WITHOUT REDNESS AT INSERTION SITE. DENIES NEEDS. NO BM IN ALMOST A WEEK. WILL NOTIFY .
[2019-09-26 08:39] VITALS: BP 125/62
--- NOTE | 2019-09-26 09:15 | NUR ---
ASSISTED UP TO SIDE OF BED TO EAT BREAKFAST. TOOK AM MEDS WITHOUT DIFFICUTLY. DENIES NEEDS.
--- NOTE | 2019-09-26 12:30 | NUR ---
SITTING UP ON SIDE OF BED EATING LUNCH. AT BEDSIDE. DENIES NEEDS.
[2019-09-26 12:46] VITALS: BP 111/62
--- NOTE | 2019-09-26 14:30 | NUR ---
GIVEN ATIVAN SLOW IVP FOR ANXIETY PRIOR TO MRI. OFF UNIT VIA WC FOR SAME.
--- NOTE | 2019-09-26 15:18 | NUR ---
RETURNED FROM MRI. ALL WENT WELL. DENIES NEEDS. AT BEDSIDE.
[2019-09-26 17:34] VITALS: BP 114/68
--- NOTE | 2019-09-26 19:51 | NUR ---
ATE MOST OF SUPPER. DENIES NEEDS. NO CHANGES NOTED.
[2019-09-26 20:00] VITALS: BP 128/66
[2019-09-27 00:02] VITALS: BP 152/77
--- NOTE | 2019-09-27 00:03 | NUR ---
PT RESTING IN BED. EYES CLOSED. NO SIGNS OF DISTRESS. BREATHING EVEN AND UNLABORED. IV SITE RT HAND DRESSING CLEAN DRY AND INTACT. NO SIGNS OF INFECTION OR INFULTRATION. LUNG SOUNDS DIMINISHED. BOWEL SOUNDS ACTIVE. ABD DISTENDED. 3LO2 NASAL CANNULA. MORPHINE FAMILY COURT JUSTICE GOING AT 09/20/09. WILL CONTINUE PLAN OF CARE. CALL LIGHT IN REACH. BED LOWERED AND LOCKED. BED RAILS UPX2.
[2019-09-27 04:00] VITALS: BP 135/64
--- NOTE | 2019-09-27 05:03 | NUR ---
I have reviewed this patient and I concur with the Shift Assessment completed by the Licensed Practical Nurse today this shift.
[2019-09-27 07:13] LABS: BASOPHILS 0.3 % (0-2); EOSINOPHILS 1.5 % (0-7); HEMATOCRIT 47.2 % (42.0-54.0); HEMOGLOBIN 14.9 g/dL (13.5-17.5); IMMATURE GRANULOCYTES 0.6 % (0-5); LYMPHOCYTES 32.9 % (15-50); MCHC 31.6 g/dL (31.0-37.0); MEAN PLATELET VOLUME 10.2 fL (7.4-10.4); NEUTROPHILS 53.7 % (40-80); PLATELET COUNT 230 10x3/uL (130-400); RBC 4.81 10x6/uL (4.20-6.10); WBC 10.3 10x3/uL (4.8-10.8)
[2019-09-27 07:19] LABS: MCV 98.1 fL (80.0-100.0)
[2019-09-27 07:36] LABS: ANION GAP 7.8 mmol/L (8-16); CARBON DIOXIDE 33.5 mmol/L (21.0-32.0); CREATININE - SERUM 1.1 mg/dL (0.6-1.3); MAGNESIUM - SERUM 2.1 mg/dL (1.8-2.4); PHOSPHOROUS 3.5 mg/dL (2.5-4.9); POTASSIUM - SERUM 4.3 mmol/L (3.5-5.1)
--- NOTE | 2019-09-27 09:30 | NUR ---
PATIENT SITTING ON SIDE OF BED. NO NEEDS AT THIS TIME. CL IN REACH. WCTM
[2019-09-27 10:22] VITALS: BP 148/65
[2019-09-27 13:59] VITALS: BP 138/75
--- NOTE | 2019-09-27 16:17 | NUR ---
PATIENT THROUGH WITH SHOWER. SITTING ON SIDE OF BED. NO NEEDS AT THIS TIME. CL IN REACH. WCTM
[2019-09-27 17:52] VITALS: BP 117/56
--- NOTE | 2019-09-27 19:30 | NUR ---
PATIENT RESTING IN BED WITH EYES CLOSED. NO S/S OF DISTRESS. NO COMPLAINTS AT THIS TIME. PATIENT HAS IV IN R HAND NORMAL SALINE @ 30 ML/HR. IV IS PATENT WITHOUT REDNESS, SWELLING, OR TENDERNESS. PATIENT IS ON TELEMETRY: HR 58 SINUE ELINOR WITH A BUNDLE BRANCH BLOCK. PATIENT IN ON 3L NASAL CANNULA O2. PATIENT HAS A MARKETING PLANNER PUMP FOR BACK PAIN. CALL LGIHT IN PLACE. WILL CONTIUE TO MONITOR.
[2019-09-28 04:00] VITALS: BP 140/73
[2019-09-28 06:45] LABS: BASOPHILS 0.2 % (0-2); EOSINOPHILS 2.9 % (0-7); HEMATOCRIT 45.9 % (42.0-54.0); HEMOGLOBIN 14.6 g/dL (13.5-17.5); IMMATURE GRANULOCYTES 0.5 % (0-5); LYMPHOCYTES 30.1 % (15-50); MCH 30.7 pg (26.0-34.0); MCHC 31.8 g/dL (31.0-37.0); MCV 96.6 fL (80.0-100.0); MEAN PLATELET VOLUME 10.4 fL (7.4-10.4); NEUTROPHILS 52.3 % (40-80); PLATELET COUNT 247 10x3/uL (130-400); RBC 4.75 10x6/uL (4.20-6.10); RDW 13.8 % (11.5-14.5)
[2019-09-28 07:07] LABS: CALC OSMOLALITY 288 mosm/kg (275-300); CALCIUM 8.1 mg/dL (8.5-10.1); CARBON DIOXIDE 32.3 mmol/L (21.0-32.0); CHLORIDE - SERUM 106 mmol/L (98-107); GLUCOSE 85 mg/dL (74-106); MAGNESIUM - SERUM 2.2 mg/dL (1.8-2.4); PHOSPHOROUS 3.6 mg/dL (2.5-4.9); SODIUM 145 mmol/L (136-145); UREA NITROGEN 15 mg/dL (7-18); eGFR NON AFRICAN AMERICAN 79 mL/min (90-120)
[2019-09-28 09:40] VITALS: BP 168/81
--- NOTE | 2019-09-28 11:56 | NUR ---
OFFERED PT REFERRAL TO TOBACCO QUITLINE. HE DECLINED.
--- NOTE | 2019-09-28 12:45 | NUR ---
PATIENT RECIEVED DC INSTRUCTIONS. VERBALIZED UNDERSTANDING. NO QUESTIONS AT THIS TIME. IV REMOVED WITH CATH TIP INTACT. NO NEW MEDS. CALL LIGHT WITHIN REACH. FAMILY AT BEDSIDE.
--- NOTE | 2019-09-28 12:58 | NUR ---
PATIENT ESCORTED DOWN TO PRIVATE VEHICLE WITH PERSONAL BELONGINGS VIA WC BY RN AT THIS TIME.
--- NOTE | 2019-09-28 18:16 | MORECARE ---
CASE MANAGEMENT DISCHARGE SUMMARY PATIENT: EMELY WILLIAMSON UNIT: [id number] ADM DATE: 09/25/19 AGE: 69 : [birth year] SEX: M ROOM/BED: D.2216 AUTHOR: MICKI,DOC PHYSICIAN: REFERRING PHYSICIAN: KAYLA GOSS MD DATE OF SERVICE: 09/28/19 Discharge Plan Patient Name: EMELY WILLIAMSON Facility: [facility]:[place] : 1950 Planned Disposition: Home Anticipated Discharge Date: Discharge Date: 09/28/2019 Expected LOS: Initial Reviewer: [email or web address] Initial Review Date: 09/28/2019 Generated: 09/28/19 7:16 pm Comments DCP- Discharge Planning Updated by [email or web address]: Annette Hays on 09/28/19 5:[address] Patient Name: EMELY WILLIAMSON Admission Status: ER Accout number: [id number] Admission Date: 09-25-2019 : 1950 Admission Diagnosis: Attending: KAYLA GOSS Current LOS: 3 Anticipated DC Date: Planned Disposition: Home Primary Insurance: MEDICARE A & B Discharge Planning Comments: CM met with patient at bedside after explaining CM role and obtaining verbal consent. Patient lives at home with his where he is independent with his care and plans to return there upon discharge. Patient feels this would be a safe discharge. CM discussed availability / needs of home health and medical equipment. Patient denies any discharge needs at this time. Patient states he will have his family drive him home upon discharge. CM will continue to follow and assist as needed with discharge planning / needs. D/C IMM signed 09/28/19 @ 1208 Vascular Surgeon: Annette Hays DCPIA - Discharge Planning Initial Assessment Updated by [email or web address]: Annette Hays on 09/28/19 6:10 pm * Is the patient Alert and Oriented? Yes * How many steps to enter\exit or inside your home? * PCP [facility] * Pharmacy [facility] * Preadmission Environment Home with Family * ADLs Independent * Other Equipment CANE, WALKER * List name and contact numbers for known caregivers / representatives who currently or will assist patient after discharge: ESTEVAN WILLIAMSON - SPOUSE- [phone] * Verbal permission to speak to the caregivers and representatives has been obtained from the patient. Yes * Community resources currently utilized None * Additional services required to return to the preadmission environment? No * Can the patient safely return to the preadmission environment? Yes * Has this patient been hospitalized within the prior 30 days at any hospital? No Coverage Notice Reviewer: [email or web address] Cas Hays Notice Issued Date-Time: 09/28/2019 12:08 Notice Type: IM Discharge Notice Notice Delivered To: Patient Relationship to Patient: Self Mock Up Assembler Name: Delivery Method: HAND - Hand Delivered Deja Days: Prior Verbal Notification: Recipient Understood Notice: Yes Recipient Signature: Yes Med Rec Note Co-signed by Attending: Coverage Notice Comment: Patient Name: EMELY WILLIAMSON Page [phone] at 1816 All edits/amendments must be made on the electronic document DICTATION DATE: 09/28/191815 MAINTENANCE WORKER HOUSE TRAILER: TRUNG 09/28/191815 RPT#: [id number] DC DATE:09/28/19 STATUS: DIS IN [facility] [address] [place] [address] END OF REPORT
== END 2019-09-28 13:08 | disposition home or self-care (01) | DRG 552 ==
LOC: D.ER 14:52 → D.MS 17:42 → OBSVTIME 17:42 → D.MS 17:42 → D.ER 18:35 → D.MS 09-25 13:53
PROVIDERS: Family Medicine; ADMIT Internal Medicine Nephrology; ATTEND Internal Medicine Nephrology
DX: M48.07 Spinal stenosis, lumbosacral region (principal); Z68.41 Body mass index [BMI] 40.0-44.9, adult; M54.5 Low back pain; I77.811 Abdominal aortic ectasia; I10 Essential (primary) hypertension; E78.5 Hyperlipidemia, unspecified; G47.33 Obstructive sleep apnea (adult) (pediatric); E66.01 Morbid (severe) obesity due to excess calories; M79.7 Fibromyalgia; N40.0 Benign prostatic hyperplasia without lower urinary tract symptoms; K21.9 Gastro-esophageal reflux disease without esophagitis; K59.00 Constipation, unspecified

== ENCOUNTER → 2020-01-02 09:57 | Outpatient (CLI) | payer MEDICARE ==
[2019-09-25 15:40] VITALS: BMI 44.9
== END | disposition home or self-care (01) ==
LOC: D.HCCECHO 09:57
PROVIDERS: ATTEND Internal Medicine Cardiovascular Disease
DX: R06.00 Dyspnea, unspecified (principal); I25.10 Atherosclerotic heart disease of native coronary artery without angina pectoris

== ENCOUNTER 2020-01-13 11:59 | Outpatient (CLI) | payer MEDICARE ==
[~2020-01-13] VITALS: Ht 185.4 cm; Wt 157.8 kg
--- NOTE | ~2020-01-13 | HEMODYNAMI ---
PATIENT:EMELY WILLIAMSON MEDICAL RECORD: [id number] : 50 LOCATION:[facility] ADMISSION DATE: 01/13/20 Generatedon:01/13/202015:00 Patient name: EMELY WILLIAMSON Patient #: [id number] SSN: [id number] : 1950 Date of study: 01/13/2020 Page: Of Hemodynamic Procedure Report Patient Data Patient Demographics First Name: EMELY Gender: Male Last Name: CLAY : 1950 Middle Initial: MARCELLA Age: 69 year(s) Patient #: [id number] Race: Unknown SSN: [id number] Additional ID: [id number] Contact details Address: [place] [address] State: [place] City: [place] Zip code: [address] Past Medical History Allergies Allergen Reaction Date Comments Reported Other allergy 10/09/2018 PCN, MOLD Other allergy 10/17/2018 PCN, MOLD Other allergy 01/13/2020 pcn Admission Admission Data Admission Date: 01/13/2020 Admission Time: 11:59 Arrival Date: 01/13/2020 Arrival Time: 0:00 Admit Source: Other Insurance Payor: Medicare HIC #: [id number] Height (in.): 72 BSA: 2.7 (m2) Height (cm.): 182.88 BMI: 47.47 (kg/m2) Weight (lbs.): 350 Weight (kg.): 158.76 Lab Results Lab Result Date: 01/13/2020 Lab Result Time: 0:00 Biochemistry Name Units Result Min Max BUN mg/dl 13 --(--*-)-- 7 18 Creatinine mg/dl 1.2 --(---*)-- 0.6 1.3 eGFR ml/min 64.76414 *-(----)-- 90 120 NONAFRICAN CBC Name Units Result Min Max Hemoglobin g/dl 15.3 --(-*--)-- 13.5 17.5 Procedure Procedure Types Cath Procedure Diagnostic Procedure [facility] w/Coronaries Sedation Charges Moderate Sedation up to 15 minutes Procedure Description Procedure Date Procedure Date: 01/13/2020 Procedure Start Time: 14:41 Procedure End Time: 14:58 Procedure Staff Name Function Otf Sanchez MD Performing Physician Lorenza Francis RT Monitor Tangela Basurto RN Nurse Shea Burns RT Scrub Indication Chest discomfort Procedure Data Cath Procedure Fluoroscopy Diagnostic fluoroscopy Total fluoroscopy Time: 2.9 time: 2.9 min min Diagnostic fluoroscopy Total fluoroscopy dose: 963 dose: 963 mGy mGy Contrast Material Contrast Material Type Amount (ml) Isovue 300 74 Entry Location Entry Primary Successful Side Size Upsize Upsize Entry Closure Gifford ccessful Closure Location (Fr) 1 (Fr) 2 (Fr) Remarks Device Remarks Radial Right 6 Fr Mechanical artery Short Compression Estimated blood loss: 10 ml Diagnostic catheters Device Type Used For End Catheter Placement DIAGNOSTIC Myles 110cm Procedure 5Fr catheter ([id number]) Procedure Complications No complications Procedure Medications Medication Administration Route Dosage 0.9% NaCl I.V. 100 ml/hr Oxygen etCO2 Nasal cannula 2 l/min Lidocaine 2% added to field 20 Heparin Flush Bag added to field 2 bags (1000units/500ml NS) Radial Cocktail added to field 1 syringe (Verapamil 2mg/Nitro 400mcg/Heparin 1500units) Versed I.V. 2 mg Fentanyl I.V. 50 mcg Hemodynamics Rest BSA: 2.7 (m2) O2 Consumption: Estimated: 291.12 (ml/min) O2 Consumption indexed: Estimated:107.82 (ml/min/m) Heart Rate: 49 (bpm) Pressure Samples Time Site Value (mmHg) Purpose Heart Use Rate(bpm) 14:45 LV 138/-4,5 Snapshot 49 14:46 AO 107/57(80) Pullback 56 14:46 LV 123/4,12 Pullback 56 Gradients Valve Time Site 1 Site 2 Mean SEP/DFP Peak To Heart Use (mmHg) (sec/min) Peak Rate (mmHg) (bpm) Aortic 14:46 LV AO 9 18 16 56 123/4,12 107/57(80) Calculations Valve P-P Mean Valve Index Valve Source Name Gradient Area Flow (cm2) Aortic 16 9 16 9 Snapshots Pre Cath Intra NCS Post Cath Vital Signs Time Heart Resp SPO2 etCO2 NIBP (mmHg) Rhythm Pain Sedation Rate (ipm) (%) (mmHg) Status Level (bpm) 14:25:14 56 19 97 38 176/97(129) SB 0 (11) 10(A) , No pain 14:29:40 50 12 100 35.8 189/97(131) SB 0 (11) 10(A) , No pain 14:34:04 53 13 97 15 180/92(131) SB 0 (11) 10(A) , No pain 14:38:27 52 15 96 35 155/85(118) SB 0 (11) 10(A) , No pain 14:42:49 49 16 98 38 162/87(130) SB 0 (11) 10(A) , No pain 14:47:09 54 10 98 14.9 140/70(102) SB 0 (11) 10(A) , No pain 14:51:27 59 13 98 37.2 152/82(101) SB 0 (11) 10(A) , No pain 14:55:33 55 14 96 29.8 136/86(112) SB 0 (11) 10(A) , No pain Medications Time Medication Route Dose Verified Delivered Reason Notes E ffectiveness by by 14:24:10 0.9% NaCl I.V. 100 Otf Tangela used for ml/hr Daniel Basurto systems lead 14:24:17 Oxygen etCO2 2 l/min Otf Tangela used for Nasal Daniel Basurto procedure cannula RN 14:24:22 Lidocaine 2% added 20ml Otf Otf for local to vial Daniel Sanchez MD anesthetic field 14:24:26 Heparin Flush added 2 bags Otf Otf used for Bag to Daniel Sanchez MD procedure (1000units/500ml field NS) 14:24:32 Radial Cocktail added 1 Otf Otf used for (Verapamil to syringe Daniel Sanchez MD procedure 2mg/Nitro field 400mcg/Heparin 1500units) 14:37:55 Versed I.V. 2 mg Otf Tangela for Daniel Basurto sedation RN 14:38:11 Fentanyl I.V. 50 mcg Otf Tangela for Daniel Basurto sedation brick burner head Log Time Note 14:14:13 Admit Source: Other 14:14:17 Arrival Date: 01/13/2020 12:00:00 AM 14:14:43 Insurance Payor : Medicare 14:14:52 Patient Height : 72 inches 14:15:10 Patient Weight : 350 lbs 14:: Lab Result : BUN 13 mg/dl :: Lab Result : eGFR NONAFRICAN 64.82525 ml/min 14:18: Lab Result : Hemoglobin 15.3 g/dl 14:18: Lab Result : Creatinine 1.2 mg/dl 14:19: Indication : Chest discomfort 14:19:24 Procedure Status Elective Heart Cath (OP). 14:19: Shea Burns RT(R) (CV) sent for patient. Start room use. 14:19: Time tracking: Regular hours (M-F 7:00 - 5:00) 14:19:37 Plan of Care:Hemodynamics will remain stable., Cardiac rhythm will remain stable., Comfort level will be maintained., Respiratory function will remain adequate., Patient/ family verbilizes understanding of procedure., Procedure tolerated without complication., Recovers from procedure without complications.. 14:19:43 Patient received from Pre/Post Procedure Room to CCL 1 Alert and oriented. Tansferred to table in Supine position. 14:19:45 Warm blankets applied, and vick hugger turned on for patient comfort. 14:19:46 Correct patient and procedure confirmed by team. 14:19:47 ECG and BP/O2 sat monitors applied to patient. 14:20:12 H&P Date Dictated: 12/25/2019 Within 30 days and on chart., H&P Addendum completed by physician on day of procedure. (MUST COMPLETE FOR ALL OUTPATIENTS). 14:20:14 Pre-procedure instructions explained to patient. 14:20:17 Family unavailable. 14:20:19 Patient NPO since Midnight. 14:20:35 Patient allergic to Other allergypcn 14:20:38 Is the patient allergic to Iodine/contrast media? No. 14:20:49 Is patient on blood thinner?No 14:20:52 Patient diabetic? No. 14:20:59 Snore? Yes 14:21:02 Sleep apnea? No 14:21:09 Dentures? No ? 14:21:13 Patient pain scale 0/10 ?. 14:21:22 IV patent on arrival in left forearm with 0.9% NaCl at KVO. 14:21:25 Lab results completed and on chart. 14:22:39 Stress Test: yes; abnormal inferior/lateral 14::43 Right Radial & Right Groin area was prepped with chlora-prep and draped in sterile fashion 14::44 Alarms reviewed by R. N. 14::45 Sharps counted by scrub and verified by R.N. 14:24:00 Vital chart was started 14:24:10 0.9% NaCl 100 ml/hr I.V. was administered by Tangela Basurto RN; used for procedure; Verbal order read back and verified. 14:24:14 Physician arrived 14:24:17 Oxygen 2 l/min etCO2 Nasal cannula was administered by Tangela Basurto RN; used for procedure; Verbal order read back and verified. 14:24:22 Lidocaine 2% 20ml vial added to field was administered by Otf Sanchez MD; for local anesthetic; Verbal order read back and verified. 14:24:26 Heparin Flush Bag (1000units/500ml NS) 2 bags added to field was administered by Otf Sanchez MD; used for procedure; Verbal order read back and verified. 14:24:32 Radial Cocktail (Verapamil 2mg/Nitro 400mcg/Heparin 1500units) 1 syringe added to field was administered by Otf Sanchez MD; used for procedure; Verbal order read back and verified. 14:25:40 Use device set Radial Dx or PCI 14:25:42 ACIST Syringe (94721) opened to sterile field. 14:25:42 Medline Cath Pack ([id number]) opened to sterile field. 14:25:43 Bag Decanter (2002S) opened to sterile field. 14:25:44 ACIST Hand Control (83506) opened to sterile field. 14:25:45 ACIST Manifold (96855) opened to sterile field. 14:25:47 MBrace Wrist Support ([id number]) opened to sterile field. 14:25:48 NEEDLE Cook 21G 4cm Radial ([id number]) opened to sterile field. 14:25:49 EMERALD Guide Wire (102-518) opened to sterile field. 14:25:50 SHEATH 6FR RAIN ([id number]) opened to sterile field. 14:36:22 --------ALL STOP TIME OUT------ 14:36:24 Final Timeout: patient, procedure, and site verified with staff and physician. All members of the team are in agreement. 14:36:27 Right Radial & Right Groin site verified by team. 14:36:32 Fire Safety Assessment: A--An alcohol-based skin anteseptic being used preoperatively., C--Open oxygen or nitrous oxide is being used., D--An ESU, laser, or fiber-optic light is being used. 14:36:38 Physical assessment completed. ASA score P 3 - A patient with severe systemic disease as per Otf Sanchez MD. 14:36:47 2) 60-89 Mildly reduced kidney function, and other findings (as for stage 1) point to kidney disease. 14:36:53 Maximum allowable contrast dose (3.7 X eGFR X 0.75)177 ml. 14:36:58 Sedation plan: IV Moderate Sedation Medication:Versed, Fentanyl 14:37:55 Versed 2 mg I.V. was administered by Tangela Basurto RN; for sedation; Verbal order read back and verified. 14:38:11 Fentanyl 50 mcg I.V. was administered by Tangela Basurto RN; for sedation; Verbal order read back and verified. 14:39:35 Zero performed for pressure channel P1 14:39:38 Zero performed for pressure channel P1 14:39:45 Zero performed for pressure channel P1 14:40:12 Zero performed for pressure channel P1 14:40:26 Procedure started. 14:40:26 Full Disclosure recording started 14:41:44 Local anesthetic to right radial artery with Lidocaine 2% by Otf Sanchez MD.INITIAL ACCESS ONLY 14:41:53 A 6 Fr Short sheath was inserted into the Right Radial artery 14:42:14 J wire advanced. 14:44:51 A DIAGNOSTIC Myles 110cm 5Fr catheter ([id number]) was advanced over the wire and used for Procedure. 14:45:03 LV angiography performed. 14:46:08 EF : 55 % 14:48:36 LCA angiography performed. 14:52:26 RCA angiography performed. 14:53:31 ZEPHYR REGULAR TR BAND (135675) opened to sterile field. 14:54:12 Catheter removed. 14:54:29 Sheath removed intact; hemostasis achieved with Mechanical Compression to the Right Radial artery. 14:54:34 Procedure ended.(Physican Out) 14:55:03 Fluoroscopy time 02.90 minutes. 14:55:08 Flurop Dose total: 963 14:55:08 Fluoroscopy dose: 963 mGy 14:55:14 Dose Area Product 09954 mGy/cm. 14:55:20 Contrast amount:Isovue 300 74ml. 14:55:23 Maximum allowable dose exceeded? No. 14:55:28 [place] band inflated with 10cc of air. 14:55:30 Insertion/operative site no bleeding no hematoma. 14:55:40 Post Procedure Pulses reassessed and unchanged 14:55:54 Post-procedure physical assessment completed. ASA score P 3 - A patient with severe systemic disease as per Otf Sanchez MD. 14:55:58 Post procedure rhythm: unchanged. 14:56:02 Estimated blood loss: 10 ml 14:56:04 Post procedure instruction explained to patient.Patient verbalizes understanding. 14:56:37 Procedure type changed to Cath procedure, Diagnostic procedure, LHC, [facility] w/Coronaries, Sedation Charges, Moderate Sedation up to 15 minutes 14:57:20 Procedure and supply charges have been captured, reviewed, submitted and are correct. 14:57:39 Procedure Complication : No complications 14:57:42 Vital chart was stopped 14:57:49 [facility] Findings: MVD- manage w/ optimal medication therapy 14:57:53 Operative report dictated upon procedure completion. 14:57:56 See physician's report for complete and final results. 14:58:02 Report given to Pre/Post Procedure Room. 14:58:08 Patient transfered to Pre/Post Procedure Room with Stretcher. 14:58:10 Procedure ended. 14:58:10 Full Disclosure recording stopped 14:58:13 End room use (Document Last) 14:58:37 End room use (Document Last) 14:59:05 End room use (Document Last) 14:59:37 End room use (Document Last) Device Usage Item Name Manufacture Quantity Catalog Hospital Part Current Minima l Lot# / Number Charge Number Stock Stock Serial# Code ACIST Acist 1 46530 [id number] [id number] 20 Syringe Foodist (62788) EcoSurge Inc Medline Medline 1 [id number] 791410 73715 966646 5 Cath Pack ([id number]) Bag Microtek 1 057941 56155 792406 5 Decanter Medical Inc. (2001S) ACIST Hand Acist 1 67682 156347 497254 716354 5 Control Medical (18021) Systems Inc ACIST Acist 1 20470 955028 808079 818292 5 Manifold Medical (16081) Systems Inc MBrace Advanced 1 140-0250-00 520546 86437 124614 5 Wrist Vascular Support Dynamics ([id number]) NEEDLE Cook Cook Medical 1 [id number] 467675 989406 014225 5 21G 4cm Radial (X82538) EMERALD Cardinal 1 502-916 532734 483427 189764 5 Guide Wire Health (537-399) SHEATH 6FR Cardinal 1 9158223 951925 9588201 736964 5 [facility] (9175737) DIAGNOSTIC Terumo 1 40-6829 900823 631101 182003 5 Myles 110cm 5Fr catheter (011581) ZEPHYR Cardinal 1 257591 448386 0910645 066526 5 REGULAR TR Health BAND (604593) Signature Audit [place] Stage Time Signature Unsigned Intra-Procedure 01/13/2020 Lorenza Francis 2:58:37 PM RT(R) Intra-Procedure 01/13/2020 Tangela Basurto 2:59:05 PM RN Intra-Procedure 01/13/2020 Otf Sanchez MD 2:59:37 PM Intra-Procedure 01/13/2020 Otf Sanchez MD 3:00:30 PM [id number] [place] [address]
[2020-01-13] MEDS ORDERED: RANEXA500 MG PO (12:26)
[2020-01-13 12:54] VITALS: BP 141/77; Ht 185.4 cm; Wt 157.8 kg
[2020-01-13 12:59] LABS: BASOPHILS 0.3 % (0-2); EOSINOPHILS 2.2 % (0-7); HEMATOCRIT 46.8 % (42.0-54.0); HEMOGLOBIN 15.3 g/dL (13.5-17.5); IMMATURE GRANULOCYTES 0.4 % (0-5); MCH 30.3 pg (26.0-34.0); MCHC 32.7 g/dL (31.0-37.0); MCV 92.7 fL (80.0-100.0); MEAN PLATELET VOLUME 10.4 fL (7.4-10.4); MONOCYTES 9.5 % (2-11); NEUTROPHILS 60.6 % (40-80); PLATELET COUNT 279 10x3/uL (130-400); RBC 5.05 10x6/uL (4.20-6.10); RDW 14.3 % (11.5-14.5)
[2020-01-13 13:48] LABS: ANION GAP 12.7 mmol/L (8-16); CALCIUM 8.6 mg/dL (8.5-10.1); CARBON DIOXIDE 29.6 mmol/L (21.0-32.0); CHOL - HDL RATIO 5.1 ratio (2.3-4.9); CREATININE - SERUM 1.2 mg/dL (0.6-1.3); LDL-HDL RATIO 2.7 ratio (1.5-3.5); POTASSIUM - SERUM 4.3 mmol/L (3.5-5.1)
--- NOTE | 2020-01-13 15:08 | NUR ---
PT ARRIVED BY STRETCHER. PLACD ON MONITORS. ASSESSMENT COMPLETED. VSS. CALL LIGHT WITHIN REACH.
--- NOTE | 2020-01-13 15:23 | NUR ---
PT RESTING COMFORTABLY. VSS. RIGHT WRIST Z BAND IN PLACE. NO BLEEDING/HEMATOMA NOTED. NO NEEDS AT THIS TIME.
--- NOTE | 2020-01-13 15:54 | NUR ---
PT RESTING COMFORTABLY. VSS. RIGHT WRIST Z BAND IN PLACE. NO BLEEDING/HEMATOMA NOTED. CALL LIGHT WITHIN REACH. PT'S CALLED AND UPDATED ON PT'S STATUS AND DISCHARGE PLANS.
--- NOTE | 2020-01-13 16:10 | NUR ---
RIGHT WRIST Z BAND IN PLACE. NO BLEEDING/HEMATOMA NOTED. CALL LIGHT WITHIN REACH. VSS AT THIS TIME. PT STILL SLEEPING. EASILY AROUSED FROM SLEEP.
--- NOTE | 2020-01-13 16:25 | NUR ---
2cc OF AIR REMOVED FROM Z BAND. NO BLEEDING/HEMATOMA NOTED. VSS. PT RESTING COMFORTABLY.
--- NOTE | 2020-01-13 16:35 | NUR ---
4cc OF AIR REMOVED FROM Z BAND. NO BLEEDING/HEMATOMA NOTED. TOLERATING WELL. VSS AT THIS TIME. PT SET UP WITH SANDWICH TRAY AND DRINK. DENIES NAUSEA/PAIN AT THIS TIME.
--- NOTE | 2020-01-13 16:50 | NUR ---
4cc OF AIR REMOVED FROM Z BAND. NO BLEEDING/HEMATOMA NOTED. CALL LIGHT WITHIN REACH. VSS AT THIS TIME.
--- NOTE | 2020-01-13 17:15 | NUR ---
DISCUSSED DISCHARGE INSTRUCTIONS WITH PT. HE VOICED UNDERSTANDING. VSS AT THIS TIME. RIGHT WRIST Z BAND REMOVED AND DRESSING APPLIED. TOLERATED WELL. NO BLEEDING/HEMATOMA NOTED. PIV D/C'D WITH CATH TIP INTACT. PT INSTRUCTED TO GET UP AND DRESSED AT THIS TIME. RIGHT WRIST BRACE IN PLACE. CALL LIGHT WITHIN REACH.
--- NOTE | 2020-01-13 17:25 | NUR ---
PT AMBULATED TO RESTROOM. VOIDED WITHOUT DIFFICULTY. STEADY GAIT NOTED WITH CANE.
--- NOTE | 2020-01-13 17:30 | NUR ---
PT TAKEN DOWN TO VEHICLE BY WHEELCHAIR. NO S/S OF DISTRESS NOTED. DISCUSSED DISCHARGE INSTRUCTIONS WITH PT'S . SHE VOICED UNDERSTANDING. ALL BELONGINGS AND PAPERWORK IN HAND.
== END 2020-01-13 17:30 | disposition home or self-care (01) ==
LOC: D.CATH 11:59
PROVIDERS: ATTEND Internal Medicine Cardiovascular Disease
DX: I25.119 Atherosclerotic heart disease of native coronary artery with unspecified angina pectoris (principal); R94.39 Abnormal result of other cardiovascular function study; I10 Essential (primary) hypertension; E78.5 Hyperlipidemia, unspecified; K21.9 Gastro-esophageal reflux disease without esophagitis; Z72.0 Tobacco use